=== PATIENT | male | born 1975 | race Caucasian/White ===

== ENCOUNTER 2017-11-09 09:35 | Emergency (ER) | payer SELFPAY ==
[2017-11-09] MEDS ORDERED: Ondansetron ODT 4 MG TAB ONE (10:19)
--- NOTE | 2017-11-09 10:58 | RAD ---
PA AND LATERAL CHEST: History: Flu-like symptoms with cough. Comparison: None. FINDINGS: The lungs are hyperinflated but clear. Cardiomediastinal silhouette is within normal limits. No acute osseous abnormality is evident. IMPRESSION: Hyperinflation but without additional acute abnormalities. POS: [facility]
== END 2017-11-09 10:53 | disposition home or self-care (01) ==
LOC: ERS 09:35
DX: B34.9 Viral infection, unspecified (principal); F17.210 Nicotine dependence, cigarettes, uncomplicated
CPT/HCPCS: 71046; Q0162